=== PATIENT | female | born 1960 | race Caucasian/White ===

== ENCOUNTER 2017-10-30 14:38 | Emergency (ER) | payer MEDICAID, OTHER ==
[~2017-10-30 14:38] MED LIST: CYCL10TA29 PO
[2017-10-30 15:17] LABS: PLATELET COUNT, AUTOMATED 122 K/uL (150-450)
--- NOTE | 2017-10-30 15:51 | RADIOLOGY IMAGING REPORT ---
FACILITY: [facility] PATIENT NAME: Shilpa Guy : 1960 MR: [id number] V: [id number] EXAM DATE: ORDERING PHYSICIAN: BANDAR TAN TECHNOLOGIST: Location: [facility] - [place] Patient: Shilpa Guy : 1960 Visit/Account:[id number] Date of Sevice: 10/30/2017 Exam type: CHEST PA AND LAT History: cough, SOB Comparison: June 10, 2017. Findings: The lungs are free of acute effusions, infiltrates or edema. There is no evidence of a pneumothorax or pneumomediastinum. The cardiac silhouette is normal in size. IMPRESSION: 1. No acute cardiopulmonary process is seen Report Dictated By: Amirah Wilson MD at 10/30/2017 3:44 PM Report E-Signed By: Amirah Wilson MD at 10/30/2017 3:45 PM WSN:[id number]
--- NOTE | 2017-10-30 16:06 | ER Report ---
History and Physical Time Seen By MD: 14:40 Hx. of Stated Complaint: Cough for 5 days. Vomitting this am HPI/ROS CHIEF COMPLAINT: Cough HISTORY OF PRESENT ILLNESS: Patient is a 57-year-old female who presents the ED with complaint of cough and congestion for the past 3-4 days. She states that she has not noted any fever at this time but has felt warm intermittently. She states that she has been intermittent short of breath as well. She states that her has been ill with similar symptoms. She denies any chest pain or palpitations. She states that she did have some nausea and vomiting as well as some diarrhea in the last day. She denies any abdominal pain. Patient has been taking some [id number] cough medication with some minimal relief. REVIEW OF SYSTEMS: Constitutional: No fever, no chills. Eyes: No discharge. ENT: She has noted a sore throat Cardiovascular: See history of present illness. Respiratory: See history of present illness. Gastrointestinal: See history of present illness. Genitourinary: No hematuria. Musculoskeletal: No back pain. Skin: No rashes. Neurological: No headache. Allergies: Coded Allergies: codeine (Verified Allergy, Mild, RASH, 10/30/17) Home Meds Discontinued Scripts Cyclobenzaprine Hcl (CYCLOBENZAPRINE HCL) 10 Mg Tablet, 10 MG PO Q8H Y for MUSCLE SPASMS, #20 TAB 0 Refills Prov:GREY CAVANAUGH MD 06/10/17 Reviewed Nurses Notes: Yes Old Medical Records Reviewed: Yes Smoking Status: Never Smoker Exposure to Second Hand Smoke?: No Hx Substance Use Disorder: No Hx Alcohol Use: No Constitutional Vital Sign - Last 24 Hours 10/30/17 14:44 Temp 98.3 Pulse 61 Resp 20 B/P (MAP) 185/100 Pulse Ox 95 O2 Delivery Room Air Physical Exam General Appearance: The patient is alert, has no immediate need for airway protection and no signs of toxicity. Patient appears to be in no acute distress. Eyes: Pupils equal and round no pallor or injection. ENT, Mouth: Mucous membranes are moist. Respiratory: There are no retractions, lungs are clear to auscultation. Cardiovascular: Regular rate and rhythm. Gastrointestinal: Abdomen is soft and non tender, no masses, bowel sounds normal. Skin: Warm and dry, no rashes. Musculoskeletal: Neck is supple non tender. Extremities are nontender, nonswollen and have full range of motion. DIFFERENTIAL DIAGNOSIS: After history and physical exam differential diagnosis was considered for cough including pneumonia, pulmonary embolus and, if respiratory infection, influenza. Medical Decision Making Data Points Result Diagram: 10/30/17 1500 10/30/17 1500 Laboratory Hematology Test 10/30/17 15:00 10/30/17 15:04 Red Blood Count 5.28 M/uL (4.17-5.56) Mean Corpuscular Volume 85.3 fL (80.0-96.0) Mean Corpuscular Hemoglobin 28.9 pg (26.0-33.0) Mean Corpuscular Hemoglobin Concent 33.9 g/dL (32.0-36.0) Red Cell Distribution Width 13.4 % (11.5-14.5) Mean Platelet Volume 8.4 fL (7.2-11.1) Neutrophils (%) (Auto) 69.4 % (39.4-72.5) Lymphocytes (%) (Auto) 22.3 % (17.6-49.6) Monocytes (%) (Auto) 4.6 % (4.1-12.4) Eosinophils (%) (Auto) 3.1 % (0.4-6.7) Basophils (%) (Auto) 0.6 % (0.3-1.4) Nucleated RBC Relative Count (auto) 0.0 /100WBC Neutrophils # (Auto) 3.5 K/uL (2.0-7.4) Lymphocytes # (Auto) 1.1 K/uL (1.3-3.6) Monocytes # (Auto) 0.2 K/uL (0.3-1.0) Eosinophils # (Auto) 0.2 K/uL (0.0-0.5) Basophils # (Auto) 0.0 K/uL (0.0-0.1) Nucleated RBC Absolute Count (auto) 0.00 K/uL Carboxyhemoglobin 1.0 % (< 5.0) Sodium Level 139 mmol/L (137-145) Potassium Level 3.9 mmol/L (3.5-5.0) Chloride Level 102 mmol/L (98-107) Carbon Dioxide Level 27 mmol/L (22-31) Blood Urea Nitrogen 12 mg/dl (7-18) Creatinine 0.80 mg/dl (0.52-1.04) Glomerular Filtration Rate Calc > 60.0 Random Glucose 114 mg/dl (75-110) Calcium Level 9.4 mg/dl (8.4-10.2) Total Bilirubin 0.3 mg/dl (0.2-1.3) Aspartate Amino Transf (AST/SGOT) 31 U/L (0-35) Alanine Aminotransferase (ALT/SGPT) 51 U/L (0-56) Alkaline Phosphatase 75 U/L (0-126) Total Protein 7.0 gm/dl (6.3-8.2) Albumin 3.9 g/dl (3.5-5.0) Influenza Virus Type A (PCR) Positive (NEGATIVE) Influenza Virus Type B (PCR) Negative (NEGATIVE) Chemistry Test 10/30/17 15:00 10/30/17 15:04 White Blood Count 5.0 k/uL (4.5-11.0) Red Blood Count 5.28 M/uL (4.17-5.56) Hemoglobin 15.3 g/dL (12.0-16.0) Hematocrit 45.1 % (34.0-47.0) Mean Corpuscular Volume 85.3 fL (80.0-96.0) Mean Corpuscular Hemoglobin 28.9 pg (26.0-33.0) Mean Corpuscular Hemoglobin Concent 33.9 g/dL (32.0-36.0) Red Cell Distribution Width 13.4 % (11.5-14.5) Platelet Count 122 K/uL (150-450) Mean Platelet Volume 8.4 fL (7.2-11.1) Neutrophils (%) (Auto) 69.4 % (39.4-72.5) Lymphocytes (%) (Auto) 22.3 % (17.6-49.6) Monocytes (%) (Auto) 4.6 % (4.1-12.4) Eosinophils (%) (Auto) 3.1 % (0.4-6.7) Basophils (%) (Auto) 0.6 % (0.3-1.4) Nucleated RBC Relative Count (auto) 0.0 /100WBC Neutrophils # (Auto) 3.5 K/uL (2.0-7.4) Lymphocytes # (Auto) 1.1 K/uL (1.3-3.6) Monocytes # (Auto) 0.2 K/uL (0.3-1.0) Eosinophils # (Auto) 0.2 K/uL (0.0-0.5) Basophils # (Auto) 0.0 K/uL (0.0-0.1) Nucleated RBC Absolute Count (auto) 0.00 K/uL Carboxyhemoglobin 1.0 % (< 5.0) Glomerular Filtration Rate Calc > 60.0 Calcium Level 9.4 mg/dl (8.4-10.2) Total Bilirubin 0.3 mg/dl (0.2-1.3) Aspartate Amino Transf (AST/SGOT) 31 U/L (0-35) Alanine Aminotransferase (ALT/SGPT) 51 U/L (0-56) Alkaline Phosphatase 75 U/L (0-126) Total Protein 7.0 gm/dl (6.3-8.2) Albumin 3.9 g/dl (3.5-5.0) Influenza Virus Type A (PCR) Positive (NEGATIVE) Influenza Virus Type B (PCR) Negative (NEGATIVE) EKG/Imaging Imaging CXR: IMPRESSION: 1. No acute cardiopulmonary process is seen Report Dictated By: Amirah Wilson MD at 10/30/2017 3:44 PM Report E-Signed By: Amirah Wilson MD at 10/30/2017 3:45 PM ED Course/Re-evaluation ED Course Will obtain chest x-ray and labs. 10/30/2017 4:23:58 pm - discussed chest x-ray and lab results with patient. Her chest x-ray and blood work is essentially normal but she is positive for influenza A. She unfortunately has had this for at least 4 days now so Tamiflu would be ineffective. Will prescribe her albuterol inhaler as well as Tessalon Perles. Advised to stay well-hydrated. Decision to Disposition Date: Oct 30, 2017 Decision to Disposition Time: 16:24 Depart Departure Latest Vital Signs Vital Signs Date Time Temp Pulse Resp B/P (MAP) Pulse Ox O2 Delivery O2 Flow Rate FiO2 10/30/17 14:44 98.3 61 20 185/100 95 Room Air Impression: Primary Impression: Influenza A Condition: Improved Disposition: HOME OR SELF-CARE New Scripts Albuterol Sulfate (VENTOLIN HFA) 18 Gm Inh 2 PUFF INH Q4-6H Y for SHORTNESS OF BREATH, #1 INH Prov: BANDAR TAN PA-C 10/30/17 Benzonatate 100 Mg Cap (TESSALON PERLE 100 MG CAP) 100 Mg Capsule 100 MG PO TID Y for COUGH, #15 CAP Prov: BANDAR TAN PA-C 10/30/17 Patient Instructions: Influenza (ED) Additional Instructions: Stay well-hydrated. Follow-up with primary care provider in 2-3 days. If having any worsening or concerning symptoms may return to the emergency department. BANDAR TAN PA-C Oct 30, 2017 16:06
[2017-10-30] MEDS ORDERED: BENZ100C4 PO (16:25)
[2017-10-30] MEDS ORDERED: ALB18R INH (16:25)
[2017-10-30 16:30] VITALS: BP 135/95
== END 2017-10-30 17:13 | disposition home or self-care (01) ==
LOC: ER 14:52
DX: J09.X2 Influenza due to identified novel influenza A virus with other respiratory manifestations (principal)
CPT/HCPCS: 71046; 82040; 82247; 82310; 82374; 82375; 82435; 82565; 82947; 84075; 84132; 84155; 84295; 84450; 84460; 84520; 85025; 87502; 99284

== ENCOUNTER 2017-12-09 11:58 | Emergency (ER) | payer MEDICAID ==
[~2017-12-09 11:58] MED LIST changes: +ALB18R INH; +BENZ100C4 PO
--- NOTE | 2017-12-09 12:00 | ER Report ---
History and Physical Time Seen By MD: 12:00 Hx. of Stated Complaint: Leg cramps HPI/ROS 57-year-old female states that she woke up at 5 AM from sleep him having cramps in her legs that traveled up her body and up with cramps in her hands and stated it lasted about 10 minutes is never had symptoms like this before is taken no supplements no new medications and no recurrence of symptoms after the initial event Allergies: Coded Allergies: codeine (Verified Allergy, Mild, RASH, 12/09/17) Home Meds Discontinued Scripts Albuterol Sulfate (VENTOLIN HFA) 18 Gm Inh, 2 PUFF INH Q4-6H Y for SHORTNESS OF BREATH, #1 INH Prov:BANDAR TAN PA-C 10/30/17 Benzonatate 100 Mg Cap (TESSALON PERLE 100 MG CAP) 100 Mg Capsule, 100 MG PO TID Y for COUGH, #15 CAP Prov:BANDAR TAN PA-C 10/30/17 Past Medical/Surgical History CTIA, surgical history of hysterectomy Smoking Status: Never Smoker Exposure to Second Hand Smoke?: No Hx Substance Use Disorder: No Hx Alcohol Use: No Family History of: Other Constitutional Vital Sign - Last 24 Hours 12/09/17 12/09/17 12/09/17 12/09/17 12:00 12:02 12:03 12:15 Temp 97.9 Pulse ??? 68 61 Resp 16 25 B/P (MAP) 175/99 175/99 (124) Pulse Ox 95 98 O2 Delivery Room Air 12/09/17 12/09/17 12/09/17 12/09/17 12:30 12:45 13:00 13:15 Pulse 69 58 62 56 Resp 28 12 10 14 Pulse Ox 96 96 92 97 12/09/17 12/09/17 12/09/17 13:30 13:45 14:30 Pulse 58 59 85 Resp 15 14 B/P (MAP) 160/80 (106) Pulse Ox 91 92 Physical Exam 37-year-old female no acute distress HEENT has normocephalic/atraumatic tympanic membranes non-reddened throat is non-reddened neck is supple no JVD heart rate is regular no murmurs rubs or gallops lungs clear to auscultation abdomen is soft moves all extremities full pulses all extremities trace edema bilateral low lower extremities Medical Decision Making Data Points Result Diagram: 12/09/17 1210 12/09/17 1210 Laboratory Hematology Test 12/09/17 12:10 12/09/17 12:52 Red Blood Count 5.33 M/uL (4.17-5.56) Mean Corpuscular Volume 85.5 fL (80.0-96.0) Mean Corpuscular Hemoglobin 29.6 pg (26.0-33.0) Mean Corpuscular Hemoglobin Concent 34.6 g/dL (32.0-36.0) Red Cell Distribution Width 13.8 % (11.5-14.5) Mean Platelet Volume 8.6 fL (7.2-11.1) Neutrophils (%) (Auto) 54.8 % (39.4-72.5) Lymphocytes (%) (Auto) 33.6 % (17.6-49.6) Monocytes (%) (Auto) 5.1 % (4.1-12.4) Eosinophils (%) (Auto) 4.4 % (0.4-6.7) Basophils (%) (Auto) 2.1 % (0.3-1.4) Nucleated RBC Relative Count (auto) 0.1 /100WBC Neutrophils # (Auto) 2.7 K/uL (2.0-7.4) Lymphocytes # (Auto) 1.7 K/uL (1.3-3.6) Monocytes # (Auto) 0.3 K/uL (0.3-1.0) Eosinophils # (Auto) 0.2 K/uL (0.0-0.5) Basophils # (Auto) 0.1 K/uL (0.0-0.1) Nucleated RBC Absolute Count (auto) 0.00 K/uL Sodium Level 144 mmol/L (137-145) Potassium Level 3.9 mmol/L (3.5-5.0) Chloride Level 103 mmol/L (98-107) Carbon Dioxide Level 27 mmol/L (22-31) Blood Urea Nitrogen 12 mg/dl (7-18) Creatinine 0.90 mg/dl (0.52-1.04) Glomerular Filtration Rate Calc > 60.0 Random Glucose 121 mg/dl (75-110) Calcium Level 10.3 mg/dl (8.4-10.2) Magnesium Level 2.2 mg/dl (1.7-2.2) Total Bilirubin 0.9 mg/dl (0.2-1.3) Aspartate Amino Transf (AST/SGOT) 28 U/L (0-35) Alanine Aminotransferase (ALT/SGPT) 38 U/L (0-56) Alkaline Phosphatase 87 U/L (0-126) Total Protein 8.4 gm/dl (6.3-8.2) Albumin 4.5 g/dl (3.5-5.0) Urine Color Yellow Urine Clarity Clear Urine pH 6.0 pH (4.8-9.5) Urine Specific [place] 1.013 Urine Protein Negative mg/dL (NEGATIVE) Urine Glucose (UA) Negative mg/dL (NEGATIVE) Urine Ketones Negative mg/dL (NEGATIVE) Urine Blood Negative (NEGATIVE) Urine Nitrite Negative (NEGATIVE) Urine Bilirubin Negative (NEGATIVE) Urine Urobilinogen Negative mg/dL (0.2-1.9) Urine Leukocyte Esterase Negative (NEGATIVE) Urine RBC None /HPF (0-2/HPF) Urine WBC <1 /HPF (0-5/HPF) Urine Squamous Epithelial Cells None /LPF (</=FEW) Urine Bacteria Negative /HPF (NONE-FEW) Urine Mucus Few /HPF (NONE-FEW) Chemistry Test 12/09/17 12:10 12/09/17 12:52 White Blood Count 4.9 k/uL (4.5-11.0) Red Blood Count 5.33 M/uL (4.17-5.56) Hemoglobin 15.8 g/dL (12.0-16.0) Hematocrit 45.5 % (34.0-47.0) Mean Corpuscular Volume 85.5 fL (80.0-96.0) Mean Corpuscular Hemoglobin 29.6 pg (26.0-33.0) Mean Corpuscular Hemoglobin Concent 34.6 g/dL (32.0-36.0) Red Cell Distribution Width 13.8 % (11.5-14.5) Platelet Count 172 K/uL (150-450) Mean Platelet Volume 8.6 fL (7.2-11.1) Neutrophils (%) (Auto) 54.8 % (39.4-72.5) Lymphocytes (%) (Auto) 33.6 % (17.6-49.6) Monocytes (%) (Auto) 5.1 % (4.1-12.4) Eosinophils (%) (Auto) 4.4 % (0.4-6.7) Basophils (%) (Auto) 2.1 % (0.3-1.4) Nucleated RBC Relative Count (auto) 0.1 /100WBC Neutrophils # (Auto) 2.7 K/uL (2.0-7.4) Lymphocytes # (Auto) 1.7 K/uL (1.3-3.6) Monocytes # (Auto) 0.3 K/uL (0.3-1.0) Eosinophils # (Auto) 0.2 K/uL (0.0-0.5) Basophils # (Auto) 0.1 K/uL (0.0-0.1) Nucleated RBC Absolute Count (auto) 0.00 K/uL Glomerular Filtration Rate Calc > 60.0 Calcium Level 10.3 mg/dl (8.4-10.2) Magnesium Level 2.2 mg/dl (1.7-2.2) Total Bilirubin 0.9 mg/dl (0.2-1.3) Aspartate Amino Transf (AST/SGOT) 28 U/L (0-35) Alanine Aminotransferase (ALT/SGPT) 38 U/L (0-56) Alkaline Phosphatase 87 U/L (0-126) Total Protein 8.4 gm/dl (6.3-8.2) Albumin 4.5 g/dl (3.5-5.0) Urine Color Yellow Urine Clarity Clear Urine pH 6.0 pH (4.8-9.5) Urine Specific [place] 1.013 Urine Protein Negative mg/dL (NEGATIVE) Urine Glucose (UA) Negative mg/dL (NEGATIVE) Urine Ketones Negative mg/dL (NEGATIVE) Urine Blood Negative (NEGATIVE) Urine Nitrite Negative (NEGATIVE) Urine Bilirubin Negative (NEGATIVE) Urine Urobilinogen Negative mg/dL (0.2-1.9) Urine Leukocyte Esterase Negative (NEGATIVE) Urine RBC None /HPF (0-2/HPF) Urine WBC <1 /HPF (0-5/HPF) Urine Squamous Epithelial Cells None /LPF (</=FEW) Urine Bacteria Negative /HPF (NONE-FEW) Urine Mucus Few /HPF (NONE-FEW) Urinalysis Test 4/17/18 12:52 Urine Color Yellow Urine Clarity Clear Urine pH 6.0 pH (4.8-9.5) Urine Specific [place] 1.013 Urine Protein Negative mg/dL (NEGATIVE) Urine Glucose (UA) Negative mg/dL (NEGATIVE) Urine Ketones Negative mg/dL (NEGATIVE) Urine Blood Negative (NEGATIVE) Urine Nitrite Negative (NEGATIVE) Urine Bilirubin Negative (NEGATIVE) Urine Urobilinogen Negative mg/dL (0.2-1.9) Urine Leukocyte Esterase Negative (NEGATIVE) Urine RBC None /HPF (0-2/HPF) Urine WBC <1 /HPF (0-5/HPF) Urine Squamous Epithelial Cells None /LPF (</=FEW) Urine Bacteria Negative /HPF (NONE-FEW) Urine Mucus Few /HPF (NONE-FEW) EKG/Imaging Imaging EKG 1227 normal sinus rhythm ventricular rate 64 QTc 427 ED Course/Re-evaluation ED Course Negative lab work negative ultrasound emergency room didn't don't find anything acutely to treat her emergency room a asked her to follow-up with primary care physician for further evaluation and treatment Re-evaluation No recurrence of leg cramping in emergency room Decision to Disposition Date: Dec 09, 2017 Decision to Disposition Time: 14:30 Depart Departure Latest Vital Signs Vital Signs Date Time Temp Pulse Resp B/P (MAP) Pulse Ox O2 Delivery O2 Flow Rate FiO2 12/09/17 14:30 85 160/80 (106) 12/09/17 13:45 14 92 12/09/17 12:02 97.9 Room Air Impression: Primary Impression: Leg cramps Condition: Improved Disposition: HOME OR SELF-CARE Referrals: [facility] 1 Week New Scripts No Active Prescriptions or Reported Meds Patient Instructions: Leg Cramps (ED) Additional Instructions: Home and rest, drink plenty of fluids, follow-up your primary care physician MCKAYLA DENT Dec 09, 2017 12:00
[2017-12-09 12:26] LABS: PLATELET COUNT, AUTOMATED 172 K/uL (150-450)
--- NOTE | 2017-12-09 12:36 | EKG ---
[place] [facility] [place] NAME: SRIDHAR DAIGLE : [id number] MR: [id number] V: [id number] EXAM DATE: ORDERING PHYSICIAN: MCKAYLA DENT TECHNOLOGIST: MARIAM Haile Reason : TIGHT Blood Pressure : / mmHG Vent. Rate : 064 BPM Atrial Rate : 064 BPM P-R Int : 132 ms QRS Dur : 082 ms QT Int : 414 ms P-R-T Axes : 032 023 033 degrees QTc Int : 427 ms Sinus rhythm No acute appearing findings When compared with ECG of 10-JUN-2017 08:32, No significant change was found Confirmed by VLADIMIR ROMAN ([id number]) on 12/09/2017 5:09:04 PM Referred By: AFSHAN Confirmed By:VLADIMIR ROMAN
--- NOTE | 2017-12-09 14:25 | RADIOLOGY IMAGING REPORT ---
[facility] PATIENT NAME: Shilpa Guy : 1960 MR: [id number] V: [id number] EXAM DATE: ORDERING PHYSICIAN: MCKAYLA DENT TECHNOLOGIST: Location: [facility] - [place] Patient: Shilpa Guy : 1960 Visit/Account:[id number] Date of Sevice: 12/09/2017 Bilateral lower extremity duplex venous ultrasound Indication: Bilateral leg cramping and pain. Comparison: None Available Findings: Duplex Doppler and color flow imaging was performed. The bilateral common femoral, femoral , and popliteal veins are all patent and compressible with normal Doppler wave forms. There are norm al responses to augmentation. The bilateral posterior tibial and peroneal veins are clear. The proximal greater saphenous veins are also normal. Subcutaneous tissues are unremarkable. Impression: 1. No evidence of deep venous thrombosis of the bilateral lower extremities. Report Dictated By: Nate Dixon at 12/09/2017 2:21 PM Report E-Signed By: Nate Dixon at 12/09/2017 2:23 PM WSN:[id number]
[2017-12-09 14:30] VITALS: BP 160/80
== END 2017-12-09 14:45 | disposition home or self-care (01) ==
LOC: ER 12:03
DX: R25.2 Cramp and spasm (principal)
CPT/HCPCS: 81001; 82040; 82247; 82310; 82374; 82435; 82565; 82947; 83735; 84075; 84132; 84155; 84295; 84450; 84460; 84520; 85025; 93005; 93970; 99283

== ENCOUNTER 2018-01-29 15:43 | Emergency (ER) | payer MEDICAID ==
--- NOTE | 2018-01-29 16:06 | EKG ---
FACILITY: [facility] PATIENT NAME: SRIDHAR DAIGLE : [id number] MR: [id number] V: [id number] EXAM DATE: ORDERING PHYSICIAN: GREY CAVANAUGH TECHNOLOGIST: Test Reason : Blood Pressure : / mmHG Vent. Rate : 065 BPM Atrial Rate : 065 BPM P-R Int : 130 ms QRS Dur : 084 ms QT Int : 406 ms P-R-T Axes : 030 006 021 degrees QTc Int : 422 ms Normal sinus rhythm Normal ECG No previous ECGs available Confirmed by RICARDO KINCAID ([id number]) on 01/30/2018 6:39:02 AM Referred By: Confirmed By:RICARDO KINCAID
[2018-01-29 16:23] LABS: PLATELET COUNT, AUTOMATED 146 K/uL (150-450)
--- NOTE | 2018-01-29 16:23 | ER Report ---
History and Physical Time Seen By MD: 16:05 Hx. of Stated Complaint: PT REPORTS R POSTERIOR RIB PAIN AND SOB THAT STARTED 2 DAYS AGO HPI/ROS CHIEF COMPLAINT: Right lower back pain HISTORY OF PRESENT ILLNESS: 57-year-old female patient presents to emergency room with complaint of right-sided lower back pain. Patient states this started yesterday. Patient states that she sneezed and since then has been having significant amounts of pain. Patient states that she has pain anytime she takes a deep breath or coughs. She denies having any fevers, chills, nausea, vomiting or diarrhea. Patient denies having any chest pain. Patient states that the pain is bad enough that she is not able to sleep last night. She denies any previous injury to that area. Patient states she has not noted any difficulty with urination. REVIEW OF SYSTEMS: Respiratory: No cough, no dyspnea. Cardiovascular: No chest pain, no palpitations. Gastrointestinal: No vomiting, no abdominal pain. Musculoskeletal: As noted above Allergies: Coded Allergies: codeine (Verified Allergy, Mild, RASH, 01/29/18) Home Meds Active Scripts Cyclobenzaprine Hcl (CYCLOBENZAPRINE HCL) 10 Mg Tablet, 10 MG PO TID Y for MUSCLE SPASMS, #15 TAB Prov:KAREN ACOSTA PHOTO PRODUCER 01/29/18 Hydrocodone Bit/Acetaminophen (HYDROCODON-ACETAMINOPHEN 5-325) 1 Each Tablet, 1 EACH PO Q4-6H Y for PAIN, #8 TAB Prov:KAREN ACOSTA PHOTO PRODUCER 01/29/18 Past Medical/Surgical History Patient has a past medical history of TIA, back pain. Patient has a surgical history of hysterectomy. Reviewed Nurses Notes: Yes Smoking Status: Never Smoker Exposure to Second Hand Smoke?: No Hx Substance Use Disorder: No Hx Alcohol Use: No Constitutional Vital Sign - Last 24 Hours 01/29/18 01/29/18 01/29/18 01/29/18 15:45 15:48 15:58 16:00 Temp 97.9 Pulse 64 Resp 18 10 B/P (MAP) 164/90 164/90 (114) 156/75 (102) Pulse Ox 98 95 O2 Delivery Room Air 01/29/18 01/29/18 01/29/18 01/29/18 16:13 16:33 16:39 16:48 Pulse 67 ??? 60 Resp 22 13 B/P (MAP) 140/77 (98) Pulse Ox 92 94 01/29/18 01/29/18 01/29/18 01/29/18 17:00 17:03 17:18 17:20 Pulse 59 Resp 23 9 B/P (MAP) 151/78 (102) 169/107 (127) Physical Exam General Appearance: The patient is alert, has no immediate need for airway protection and no current signs of toxicity. Respiratory: Chest is non tender, lungs are clear to auscultation. Cardiac: regular rate and rhythm Gastrointestinal: Abdomen is soft and non tender, no masses, bowel sounds normal. Musculoskeletal: Neck: Neck is supple and non tender. Extremities have full range of motion and are non tender. Back: Patient has tenderness to the right side of the low back: The paraspinous muscles. Patient has some tenderness around the L1 Skin: No rashes or lesions. DIFFERENTIAL DIAGNOSIS: After history and physical exam differential diagnosis was considered for back pain including but not limited to muscular pain, herniated disc, spine fracture, intra-abdominal causes and urinary tract infection. Medical Decision Making Data Points Result Diagram: 01/29/18 1550 01/29/18 1550 Laboratory Hematology Test 01/29/18 15:50 01/29/18 16:32 Red Blood Count 4.81 M/uL (4.17-5.56) Mean Corpuscular Volume 85.1 fL (80.0-96.0) Mean Corpuscular Hemoglobin 30.1 pg (26.0-33.0) Mean Corpuscular Hemoglobin Concent 35.4 g/dL (32.0-36.0) Red Cell Distribution Width 13.8 % (11.5-14.5) Mean Platelet Volume 8.8 fL (7.2-11.1) Neutrophils (%) (Auto) 53.7 % (39.4-72.5) Lymphocytes (%) (Auto) 34.6 % (17.6-49.6) Monocytes (%) (Auto) 5.2 % (4.1-12.4) Eosinophils (%) (Auto) 5.6 % (0.4-6.7) Basophils (%) (Auto) 0.9 % (0.3-1.4) Nucleated RBC Relative Count (auto) 0.1 /100WBC Neutrophils # (Auto) 2.5 K/uL (2.0-7.4) Lymphocytes # (Auto) 1.6 K/uL (1.3-3.6) Monocytes # (Auto) 0.2 K/uL (0.3-1.0) Eosinophils # (Auto) 0.3 K/uL (0.0-0.5) Basophils # (Auto) 0.0 K/uL (0.0-0.1) Nucleated RBC Absolute Count (auto) 0.00 K/uL Sodium Level 141 mmol/L (137-145) Potassium Level 3.9 mmol/L (3.5-5.0) Chloride Level 104 mmol/L (98-107) Carbon Dioxide Level 25 mmol/L (22-31) Blood Urea Nitrogen 12 mg/dl (7-18) Creatinine 1.00 mg/dl (0.52-1.04) Glomerular Filtration Rate Calc 56.7 Random Glucose 100 mg/dl (75-110) Calcium Level 9.6 mg/dl (8.4-10.2) Total Bilirubin 0.4 mg/dl (0.2-1.3) Aspartate Amino Transf (AST/SGOT) 26 U/L (0-35) Alanine Aminotransferase (ALT/SGPT) 32 U/L (0-56) Alkaline Phosphatase 84 U/L (0-126) Troponin I < 0.012 ng/ml C-Reactive Protein < 0.5 mg/dl (<1.0) Total Protein 7.4 gm/dl (6.3-8.2) Albumin 4.1 g/dl (3.5-5.0) Urine Color Straw Urine Clarity Clear Urine pH 6.0 pH (4.8-9.5) Urine Specific [place] 1.005 Urine Protein Negative mg/dL (NEGATIVE) Urine Glucose (UA) Negative mg/dL (NEGATIVE) Urine Ketones Negative mg/dL (NEGATIVE) Urine Blood Negative (NEGATIVE) Urine Nitrite Negative (NEGATIVE) Urine Bilirubin Negative (NEGATIVE) Urine Urobilinogen Negative mg/dL (0.2-1.9) Urine Leukocyte Esterase Negative (NEGATIVE) Urine RBC None /HPF (0-2/HPF) Urine WBC <1 /HPF (0-5/HPF) Urine Squamous Epithelial Cells Few /LPF (</=FEW) Urine Bacteria Negative /HPF (NONE-FEW) Urine Mucus None /HPF (NONE-FEW) Chemistry Test 6/7/18 15:50 01/29/18 16:32 White Blood Count 4.6 k/uL (4.5-11.0) Red Blood Count 4.81 M/uL (4.17-5.56) Hemoglobin 14.5 g/dL (12.0-16.0) Hematocrit 41.0 % (34.0-47.0) Mean Corpuscular Volume 85.1 fL (80.0-96.0) Mean Corpuscular Hemoglobin 30.1 pg (26.0-33.0) Mean Corpuscular Hemoglobin Concent 35.4 g/dL (32.0-36.0) Red Cell Distribution Width 13.8 % (11.5-14.5) Platelet Count 146 K/uL (150-450) Mean Platelet Volume 8.8 fL (7.2-11.1) Neutrophils (%) (Auto) 53.7 % (39.4-72.5) Lymphocytes (%) (Auto) 34.6 % (17.6-49.6) Monocytes (%) (Auto) 5.2 % (4.1-12.4) Eosinophils (%) (Auto) 5.6 % (0.4-6.7) Basophils (%) (Auto) 0.9 % (0.3-1.4) Nucleated RBC Relative Count (auto) 0.1 /100WBC Neutrophils # (Auto) 2.5 K/uL (2.0-7.4) Lymphocytes # (Auto) 1.6 K/uL (1.3-3.6) Monocytes # (Auto) 0.2 K/uL (0.3-1.0) Eosinophils # (Auto) 0.3 K/uL (0.0-0.5) Basophils # (Auto) 0.0 K/uL (0.0-0.1) Nucleated RBC Absolute Count (auto) 0.00 K/uL Glomerular Filtration Rate Calc 56.7 Calcium Level 9.6 mg/dl (8.4-10.2) Total Bilirubin 0.4 mg/dl (0.2-1.3) Aspartate Amino Transf (AST/SGOT) 26 U/L (0-35) Alanine Aminotransferase (ALT/SGPT) 32 U/L (0-56) Alkaline Phosphatase 84 U/L (0-126) Troponin I < 0.012 ng/ml C-Reactive Protein < 0.5 mg/dl (<1.0) Total Protein 7.4 gm/dl (6.3-8.2) Albumin 4.1 g/dl (3.5-5.0) Urine Color Straw Urine Clarity Clear Urine pH 6.0 pH (4.8-9.5) Urine Specific [place] 1.005 Urine Protein Negative mg/dL (NEGATIVE) Urine Glucose (UA) Negative mg/dL (NEGATIVE) Urine Ketones Negative mg/dL (NEGATIVE) Urine Blood Negative (NEGATIVE) Urine Nitrite Negative (NEGATIVE) Urine Bilirubin Negative (NEGATIVE) Urine Urobilinogen Negative mg/dL (0.2-1.9) Urine Leukocyte Esterase Negative (NEGATIVE) Urine RBC None /HPF (0-2/HPF) Urine WBC <1 /HPF (0-5/HPF) Urine Squamous Epithelial Cells Few /LPF (</=FEW) Urine Bacteria Negative /HPF (NONE-FEW) Urine Mucus None /HPF (NONE-FEW) Urinalysis Test 01/29/18 16:32 Urine Color Straw Urine Clarity Clear Urine pH 6.0 pH (4.8-9.5) Urine Specific [place] 1.005 Urine Protein Negative mg/dL (NEGATIVE) Urine Glucose (UA) Negative mg/dL (NEGATIVE) Urine Ketones Negative mg/dL (NEGATIVE) Urine Blood Negative (NEGATIVE) Urine Nitrite Negative (NEGATIVE) Urine Bilirubin Negative (NEGATIVE) Urine Urobilinogen Negative mg/dL (0.2-1.9) Urine Leukocyte Esterase Negative (NEGATIVE) Urine RBC None /HPF (0-2/HPF) Urine WBC <1 /HPF (0-5/HPF) Urine Squamous Epithelial Cells Few /LPF (</=FEW) Urine Bacteria Negative /HPF (NONE-FEW) Urine Mucus None /HPF (NONE-FEW) EKG/Imaging Imaging 2 VIEWS CHEST INDICATION: Back pain and shortness of breath COMPARISON: X-ray examination of the chest from October 30, 2017. FINDINGS: Cardiac silhouette is upper limits of normal. Lungs are clear. No acute bony finding. There is no focal infiltrate or lobar consolidation. There is no pneumothorax or pleural effusion. IMPRESSION: 1. No acute cardiopulmonary process. Report Dictated By: Nithin Esteban MD at 01/29/2018 4:59 PM Report E-Signed By: Nithin Esteban MD at 01/29/2018 4:59 PM LUMBAR SPINE 4 VIEWS HISTORY: BACK PAIN COMPARISON: None. FINDINGS: There are 5 nonrib-bearing lumbar-type vertebra. Bilateral oblique images demonstrate mild facet arthrosis with minimally increased subchondral sclerosis. No evidence of a pars defect. Mild disc narrowing is noted at L3-4 L4-L5 with more moderate narrowing at L5- S1. The alignment is anatomic. No acute fracture. Incidental note is made of atherosclerotic arterial calcifications of the interlobar renal aorta. IMPRESSION: 1. Mild to moderate degenerative spondylotic changes lower lumbar spine most significant at L5-S1. 2. Mild lower lumbar facet arthrosis. Report Dictated By: Nithin Esteban MD at 01/29/2018 4:56 PM Report E-Signed By: Nithin Esteban MD at 01/29/2018 4:59 PM ED Course/Re-evaluation ED Course Patient was admitted and examined, history and physical were obtained. Differential diagnoses were considered. On examination lungs are clear, heart was regular, abdomen soft nontender. Patient did have some tenderness to the paraspinal muscles on the right side of the lumbar spine. Patient also has some tenderness to the lumbar spine around the L1-L2 region. A CBC, CMP, chest x-ray , lumbar x-ray were done. Lab results were unremarkable, chest x-ray was negative, lumbar spine x-ray did show some degenerative changes in the L5-S1 region, however is only mild or moderate. I discussed the findings with patient. I believe that she is having a muscle strain as she did sneeze which seem to start her pain. I believe that when she did that she strain of the lumbar paraspinal muscles. We will go ahead and treat her with a limited supply of pain medication, 8 hydrocodone 5/325, Flexeril 10 mg 15. Patient is to follow-up with her primary care provider. She is return to emergency room if condition worsens. I discussed this with the patient and her and they verbalized understanding and agreement with plan. Decision to Disposition Date: Jan 29, 2018 Decision to Disposition Time: 17:15 Depart Departure Latest Vital Signs Vital Signs Date Time Temp Pulse Resp B/P (MAP) Pulse Ox O2 Delivery O2 Flow Rate FiO2 01/29/18 17:20 169/107 (127) 01/29/18 17:18 59 9 01/29/18 16:48 94 01/29/18 15:45 97.9 Room Air Impression: Primary Impression: Low back strain Condition: Improved Disposition: HOME OR SELF-CARE New Scripts Cyclobenzaprine Hcl (CYCLOBENZAPRINE HCL) 10 Mg Tablet 10 MG PO TID Y for MUSCLE SPASMS, #15 TAB Prov: KAREN ACOSTAP 01/29/18 Hydrocodone Bit/Acetaminophen (HYDROCODON-ACETAMINOPHEN 5-325) 1 Each Tablet 1 EACH PO Q4-6H Y for PAIN, #8 TAB Prov: KAREN ACOSTAP 01/29/18 Patient Instructions: Low Back Strain (ED) Additional Instructions: Limit activity by pain. Get plenty of rest. Increase fluid intake. Follow up with your primary care provider in the next 2-3 days. Increase low impact aerobic activity, such as walking. You may take Ibuprofen in addition to the pain medication. No driving while taking the medication. Problem Qualifiers Primary Impression: Low back strain Encounter type: initial encounter Qualified Codes: S39.012A - Strain of muscle, fascia and tendon of lower back, initial encounter KAREN ACOSTA PHOTO PRODUCER Jan 29, 2018 16:23
--- NOTE | 2018-01-29 17:01 | RADIOLOGY IMAGING REPORT ---
FACILITY: [facility] - [place] PATIENT NAME: Shilpa Guy : 1960 MR: [id number] V: [id number] EXAM DATE: ORDERING PHYSICIAN: KAREN ACOSTA TECHNOLOGIST: Location: [facility] [place] Patient: Shilpa Guy : 1960 Visit/Account:[id number] Date of Sevice: 01/29/2018 LUMBAR SPINE 4 VIEWS HISTORY: BACK PAIN COMPARISON: None. FINDINGS: There are 5 nonrib-bearing lumbar-type vertebra. Bilateral oblique images demonstrate mild facet arth rosis with minimally increased subchondral sclerosis. No evidence of a pars defect. Mild disc narrowing is noted at L3-4 L4-L5 with more moderate narrowing at L5-S1. The alignment is an atomic. No acute fracture. Incidental note is made of atherosclerotic arterial calcifications of the interlobar renal aorta. IMPRESSION: 1. Mild to moderate degenerative spondylotic changes lower lumbar spine most significant at L5-S1. 2. Mild lower lumbar facet arthrosis. Report Dictated By: Nithin Esteban MD at 01/29/2018 4:56 PM Report E-Signed By: Nithin Esteban MD at 01/29/2018 4:59 PM WSN:[id number]
--- NOTE | 2018-01-29 17:03 | RADIOLOGY IMAGING REPORT ---
FACILITY: [facility] PATIENT NAME: Shilpa Guy : 1960 MR: [id number] V: [id number] EXAM DATE: ORDERING PHYSICIAN: KAREN ACOSTA TECHNOLOGIST: Location: [facility] - [place] Patient: Shilpa Guy : 1960 Visit/Account:[id number] Date of Sevice: 01/29/2018 2 VIEWS CHEST INDICATION: Back pain and shortness of breath COMPARISON: X-ray examination of the chest from October 30, 2017. FINDINGS: Cardiac silhouette is upper limits of normal. Lungs are clear. No acute bony finding. There is no focal infiltrate or lobar consolidation. There is no pneumothorax or pleural effusion. IMPRESSION: 1. No acute cardiopulmonary process. Report Dictated By: Nithin Esteban MD at 01/29/2018 4:59 PM Report E-Signed By: Nithin Esteban MD at 01/29/2018 4:59 PM WSN:[id number]
[2018-01-29] MEDS ORDERED: HYDR-385 PO (17:11)
[2018-01-29] MEDS ORDERED: CYCL10TA29 PO (17:11)
[2018-01-29 17:20] VITALS: BP 169/107
== END 2018-01-29 17:25 | disposition home or self-care (01) ==
LOC: ER 15:47
DX: S39.012A Strain of muscle, fascia and tendon of lower back, initial encounter (principal)
CPT/HCPCS: 71046; 72120; 81001; 82040; 82247; 82310; 82374; 82435; 82565; 82947; 84075; 84132; 84155; 84295; 84450; 84460; 84484; 84520; 85025; 86140; 93005; 99284

== ENCOUNTER 2018-06-02 15:55 | Emergency (ER) | payer MEDICAID, OTHER ==
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
[2018-06-02] MEDS ORDERED: DIPHTH/TETANUS/ACEL. PERTUSSIS IM ONLY ONE (17:05)
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
--- NOTE | 2018-06-02 17:15 | RADIOLOGY IMAGING REPORT ---
FACILITY: [facility] - [place] PATIENT NAME: Shilpa Guy : 1960 MR: [id number] V: [id number] EXAM DATE: [id number] ORDERING PHYSICIAN: KAREN ACOSTA TECHNOLOGIST: [place] [facility] [place] Shilpa [place] : 1960 Visit/Account:[id number] Date of Sevice: 06/02/2018 Exam type: HIP RIGHT History: hip pain Comparison: None. Findings: Two views of the right hip demonstrate no evidence of acute fracture or dislocation. There are moder ate degenerative changes of the pubic symphysis and mild degenerative changes of both hip joints bila terally IMPRESSION: 1. No evidence of acute fracture-dislocation involving the right hip Report Dictated By: Amirah Wilson MD at 06/02/2018 5:11 PM Report E-Signed By: Amirah Wilson MD at 06/02/2018 5:11 PM WSN:[email or web address]
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
[2018-06-02] MEDS ORDERED: IBUPROFEN 600 MG TAB PO ONE (17:25)
[2018-06-02 17:30] VITALS: BP 148/72
[2018-06-02] MEDS ORDERED: CYCL10TA29 PO (19:45)
== END 2018-06-02 17:42 | disposition home or self-care (01) ==
LOC: ER 16:07
DX: S40.012A Contusion of left shoulder, initial encounter (principal); S16.1XXA Strain of muscle, fascia and tendon at neck level, initial encounter; S60.222A Contusion of left hand, initial encounter; S80.212A Abrasion, left knee, initial encounter; S80.211A Abrasion, right knee, initial encounter; Y04.8XXA Assault by other bodily force, initial encounter
CPT/HCPCS: 72050; 90471; 90715; 99284

== ENCOUNTER → 2018-06-02 | Outpatient (CLI) | payer MEDICAID ==
[~2018-06-02] MED LIST changes: +HYDR-385 PO
== END ==
LOC: AMB 15:41
PROVIDERS: ATTEND Nurse Practitioner
DX: R06.02 Shortness of breath (principal); F41.9 Anxiety disorder, unspecified; Y04.8XXA Assault by other bodily force, initial encounter
CPT/HCPCS: A0425; A0427